=== PATIENT | female | born 1950 | race Caucasian/White ===

== ENCOUNTER 2018-09-22 07:15 | Inpatient (IN) | payer OTHER ==
--- NOTE | 2018-10-21 13:42 | GHP ---
[f rep st] PREOP HISTORY AND PHYSICAL DATE OF ADMISSION: 10/22/2018 ADMISSION DIAGNOSIS: Complication orthopedic implant, left knee. PLANNED PROCEDURE: Revision left total knee arthroplasty. HISTORY OF PRESENT ILLNESS: The patient is a 68-year-old female from [place], [place] who had a left total knee replacement done in 2009, which has chronically hurt as well as dislocated posteriorly. She was seen out in [place], [place] by myself. X-rays showed a malpositioned implant. Decision falguni bey made to proceed with a revision arthroplasty on the left. PRIOR MEDICAL HISTORY: Anxiety, hypertension, hyperlipidemia. MEDICATIONS: Atorvastatin 20 mg daily, furosemide 40 mg daily, losartan 100 mg tablet daily, levothy roxine 100 mcg, venlafaxine extended release 75 mg. SOCIAL HISTORY: and lives in [place], [place]. Has a daughter that assists in her care. Do es not drink alcohol. Never smoker. REVIEW OF SYSTEMS: No shortness of breath or chest pain. Otherwise, review of systems unremarkable. PHYSICAL EXAM: VITAL SIGNS: A 68-year-old female. She is 5 feet 2 inches tall, weighs 252 pounds, which puts her BMI of 45.9, blood pressure is 132/84, heart rate 94. GENERAL: Alert and oriented x3 . HEENT: Normocephalic, atraumatic. Extraocular muscles intact. NECK: Supple. There is no lymph adenopathy. No JVD. CHEST: Clear to auscultation. CARDIOVASCULAR: Regular rate and rhythm. ABDO MEN: Soft, nontender, nondistended. EXTREMITIES: Left knee shows well-healed midline incision. Sh e has full extension, flexes to 120 degrees. The knee tibial component does seem to come out posteri sam. Knee is stable to varus valgus stress testing. Calf is soft. 1+ dorsalis pedis, posterior ti bial pulses. IMAGING: Shows a malpositioned tibial component with excess tibial slope. PLAN: Long discussion with the patient and her daughter. We spent 15 minutes [id number] time revi esquivel clinical course, imaging findings and surgical options. At this point, I think we will need to revise both the tibial component, as well as the femoral component. There is possibility that anatoly jacobson need a hinge on that to give her stability. She will spend several days in the hospital here and t mikel I anticipate discharge to a assisted facility back in [place]. She understands that risks and benefits, including infection, need for additional surgery, blood clots were all discussed. She understands these risks, wished to proceed. Plan on surgery Saturday at [facility]. /[id number]/MODL
[2018-10-22] MEDS ORDERED: ceFAZolin 2 GM/DEXTROSE 100 ML IV ONE (08:00)
[2018-10-22] MEDS ORDERED: LR 1,000 ML IV ONE (08:04)
--- NOTE | 2018-10-22 08:24 | PDHPUP ---
History & Physical Update H&P update statement: This history and physical update is based on an assessment of the patient which was completed after admission or registration (within 24 hours), but prior to the surgery/procedure. H&P update: H&P reviewed & patient examined, no change in patient's condition since H&P completed
[2018-10-22] MEDS ORDERED: ceFAZolin 1 GM/5 ML SYR ONE (08:31)
[2018-10-22] MEDS ORDERED: BUPIVACAINE/EPI 0.25% 30 ML SDV ONE (08:42)
[2018-10-22] MEDS ORDERED: MIDAZOLAM 2 MG/2 ML VIAL ONE (08:46)
[2018-10-22] MEDS ORDERED: PROPOFOL/EMULSION 500 MG/50 ML BOTTLE IV ONE ×4 (08:48→12:03)
[2018-10-22] MEDS ORDERED: BUPIVACAINE/DEXTROSE 7.5MG/ML 2 ML SPINAL AMP SP ONE (08:51)
[2018-10-22] MEDS ORDERED: PHENYLEPHRINE HCL 100 MCG/ML SYR ONE (09:23)
[2018-10-22] MEDS ORDERED: ONDANSETRON 4 MG/2 ML VIAL ONE (09:24)
[2018-10-22] MEDS ORDERED: DEXAMETHASONE 4 MG/ML VIAL ONE (09:24)
[2018-10-22] MEDS ORDERED: RANITIDINE 50 MG/2 ML VIAL ONE (09:24)
[2018-10-22] MEDS: THROMBIN (BOVINE) 5,000 UNIT VIAL TP ONE ×2 (10:17→13:37)
[2018-10-22] MEDS: CALCIUM CHLORIDE 1 GM/10 ML INJ ONE ×2 (10:18→13:36)
[2018-10-22] MEDS ORDERED: fentaNYL 100 MCG/2 ML INJ ONE (10:59)
[2018-10-22] MEDS ORDERED: MIDAZOLAM 2 MG/2 ML VIAL IVP ONE (11:20)
[2018-10-22] MEDS ORDERED: ONDANSETRON 4 MG/2 ML VIAL IVP PRN ×2 (12:46→13:48)
[2018-10-22] MEDS ORDERED: ALBUTEROL 3 ML DEYVIAL IH PRN (12:46)
[2018-10-22] MEDS ORDERED: HYDROmorphONE/DILAUDID 1 MG/ML INJ IVP PRN (12:46)
[2018-10-22] MEDS ORDERED: fentaNYL 100 MCG/2 ML INJ IVP PRN (12:46)
[2018-10-22] MEDS ORDERED: NALOXONE HCL 0.4 MG/ML INJ IVP PRN (12:46)
[2018-10-22] MEDS ORDERED: oxyCODONE IR 5 MG TAB PO PRN (12:46)
--- NOTE | 2018-10-22 12:48 | PDANEPAE ---
ANE History of Present Illness Right Knee Revision TKA ANE Past Medical History - Cardiovascular History Hx Hypertension: Yes Hx Arrhythmias: No Hx Chest Pain: No Hx Coronary Artery / Peripheral Vascular Disease: No Hx CHF / Valvular Disease: No Hx Palpitations: No - Pulmonary History Hx COPD: No Hx Asthma/Reactive Airway Disease: No Hx Recent Upper Respiratory Infection: No Hx Oxygen in Use at Home: Yes O2 in Use at Home (L/minute): 2-3L Hx Sleep Apnea: Yes Sleep Apnea Screening Result - Last Documented: Positive Pulmonary History Comment: LESLIE uses CPAP - Neurologic History Hx Cerebrovascular Accident: No Hx Seizures: No Hx Dementia: No - Endocrine History Hx Diabetes: No - Renal History Hx Renal Disorders: No - Liver History Hx Hepatic Disorders: No - Neurological & Psychiatric Hx Hx Neurological and Psychiatric Disorders: Yes Neurological / Psychiatric History Comment: depression/anxiety - Cancer History Hx Cancer: No - Congenital Disorder History Hx Congenital Disorders: No - GI History Hx Gastrointestinal Disorders: Yes Gastrointestinal History Comment: acid reflux - Other Health History Other Health History: psorasis on feet and hand. cataract sx bilat 2018. allergies - Chronic Pain History Chronic Pain: Yes (bilat knees) - Surgical History Prior Surgeries: none in last 5 yrs. 2010 ltka ANE Review of Systems Review of Systems: - Exercise capacity METS (RN): 3 METS ANE Patient History - Allergies Allergies/Adverse Reactions: amlodipine Allergy (Verified 10/16/18 14:30) Other-Enter Comments - Home Medications Home Medications: Ascorbic Acid [Vitamin C 500 mg (*)] 500 mg PO DAILY 09/08/18 [Last Taken ] Atorvastatin Calcium [Lipitor 20 mg (*)] 20 mg PO DAILY18 09/08/18 [Last Taken 10/21/18 20:00] C/E/Zn/Cu/OM3/DHA/EPA/LUT/ZEAX [Preservision Areds 2 Softgel] 1 each PO BID 01/19 [Last Taken 10/16/18] Cholecalciferol Vit D3 [Vitamin D3 (*)] 1,000 units PO DAILY 09/08/18 [Last Taken 10/16/18] Folic Acid [Folic Acid 1 MG (*)] 1 mg PO DAILY 09/08/18 [Last Taken 10/16/18] Furosemide [Lasix 40 MG (*)] 40 mg PO DAILY 09/08/18 [Last Taken 10/21/18 08:30] Glucosamine/Chondroitin [Glucosamine/Chondroitin (*)] 1 each PO DAILY 09/08/18 [ Last Taken 10/16/18] Herbals/Supplements -Info Only 1 ea PO DAILY 09/08/18 [Last Taken 10/16/18] Levothyroxine [Synthroid 100 mcg (*)] 100 mcg PO DAILY06 09/08/18 [Last Taken 05:30] Losartan Potassium 100 mg PO DAILY 09/08/18 [Last Taken 10/22/18 05:30] Magnesium Oxide [Magnesium Oxide 400 mg (*)] 400 mg PO DAILY 09/08/18 [Last Taken 10/16/18] Methotrexate Sodium [Rheumatrex 2.5 mg (RX)] 12.5 mg PO WE 09/08/18 [Last Taken 10/15/18] Multivitamins [Multivitamin (*)] 1 each PO DAILY 09/08/18 [Last Taken 10/16/18] Pantoprazole Sodium [Protonix 40mg (*)] 40 mg PO BID 09/08/18 [Last Taken 05:30] Potassium Cl [Klor-Con 20 meq (*)] 20 meq PO BID 09/08/18 [Last Taken 10/21/18 08:30] Venlafaxine Xr [Effexor Xr 75MG (*)] 75 mg PO DAILY 09/08/18 [Last Taken 05:30] traMADol [Ultram 50 mg (*)] 50 mg PO Q4 PRN 09/08/18 [Last Taken 10/17/18] Triamterene/Hctz 37.5/25 [Dyazide 37.5/25 (*)] 1 each PO DAILY 10/08/18 [Last Taken 10/21/18 08:30] - NPO status NPO Since - Liquids (Date): 10/22/18 NPO Since - Liquids (Time): 05:30 NPO Since - Solids (Date): 10/21/18 NPO Since - Solids (Time): 19:00 - Smoking Hx Smoking Status: Never smoked - Family Anes Hx Family Hx Anesthesia Complications: none ANE Labs/Vital Signs - Vital Signs Blood Pressure: 151/102 Heart Rate: 86 Respiratory Rate: 28 O2 Sat (%): 94 Height: 160.02 cm Weight: 114.759 kg ANE Physical Exam - Airway Neck exam: FROM Mallampati Score: Class 2 Mouth exam: normal dental/mouth exam - Pulmonary Pulmonary: clear to auscultation - Cardiovascular Cardiovascular: regular rate and rhythym - ASA Status ASA Status: III ANE Anesthesia Plan Anesthesia Plan: spinal Regional Anesthesia: adductor canal FNB
[2018-10-22] MEDS ORDERED: PROPOFOL 200 MG/20 ML VIAL ONE (12:56)
[2018-10-22] MEDS ORDERED: ceFAZolin 1 GM VIAL ONE ×2 (12:58→12:59)
[2018-10-22] MEDS ORDERED: ROPIVACAINE HCL 150 MG/30 ML INJ ONE (13:15)
--- NOTE | 2018-10-22 13:38 | POSTANESTH ---
Post Anesthetic Evaluation Cardiovascular Status: Normal, Stable Respiratory Status: Normal, Stable Level of Consciousness/Mental Status: Can Participate in Eval, Alert and Oriented Pain Control: Adequate, Prn Tx Ordered Nausea/Vomiting Control: Adequate, Prn Tx Ordered Complications Possibly Related to Anesthesia: None Noted
[2018-10-22] MEDS ORDERED: MAGNESIUM HYDROXIDE 30 ML UDCUP PO PRN (13:48)
[2018-10-22] MEDS ORDERED: LACTULOSE 20 GM/30 ML UDCUP PO PRN (13:48)
[2018-10-22] MEDS ORDERED: PROMETHAZINE HCL 25 MG/ML INJ IVP PRN (13:48)
[2018-10-22] MEDS ORDERED: PROMETHAZINE HCL 25 MG SUPPR PR PRN (13:48)
[2018-10-22] MEDS ORDERED: POLYETHYLENE GLYCOL 3350 17 GM PKT PO PRN (13:48)
[2018-10-22] MEDS ORDERED: BISACODYL 10 MG SUPP PR PRN (13:48)
[2018-10-22] MEDS ORDERED: diphenhydrAMINE 25 MG CAP PO PRN (13:48)
[2018-10-22] MEDS ORDERED: ONDANSETRON DISINTEGRATING 4 MG TAB PO PRN (13:48)
[2018-10-22] MEDS ORDERED: traMADol 50 MG TAB PO PRN (13:48)
[2018-10-22] MEDS ORDERED: TEMAZEPAM 15 MG CAP PO PRN (13:48)
--- NOTE | 2018-10-22 13:50 | POSTOPPROG ---
Post Op Note Date of Operation: 10/22/18 Surgeon: Kalpesh Flowers Cement Breaker: Yumiko Barriga Anesthesiologist: Palomo Anesthesia: Spinal Pre-op Diagnosis: malposition TKA Post-op Diagnosis: same Indication: pain, dysfunction Findings: excessive Posterior slope tibia Inf/Abcess present in the surg proc area at time of surgery?: No EBL: 100-500 (300 ml) Complications: none Bowel Protocol: Yes Clean Closure Performed: Yes
[2018-10-22] MEDS ORDERED: LR 1,000 ML IV SCH (14:00)
[2018-10-22] MEDS ORDERED: METHOTREXATE 2.5 MG TAB PO SCH (14:00)
[2018-10-22] MEDS: LABETALOL HCL 5 MG/ML 20 ML MDV IVP PRN ×2 (14:45→15:19)
[2018-10-22] MEDS ORDERED: LABETALOL HCL 5 MG/ML 20 ML MDV ONE (14:55)
--- NOTE | 2018-10-22 16:01 | SOAPPROG ---
SOAP Progress Note Assessment/Plan: Assessment: s/p left TKA revision - procedure earlier today with Dr. Flowers Doing well History of left TKA in [place] (2009); has had chronic pain and posterior dislocations; x-rays revealed malpositioning of the implant Plan: Begin d/c planning - she will likely stay in hospital for a couple days and then transfer back to SNF in [place] Continue VTE ppx- aspirin 325 mg BID x 21 days, SCDs in hospital Continue oral pain medication oxycodone, Tylenol, celebrex, tramadol Continue PT efforts WBAT, ROM as tolerated Follow up with Dr. Flowers in 2 weeks Subjective: Patient states she is doing ok, left knee pain is mild at this time secondary to the spinal anesthesia and nerve block. She is planning on going back to a SNF in [place]. She denies SOB, CP, fever, chills. Objective: Vital Signs Temp Pulse Resp BP Pulse Ox 36.5 C 78 18 157/78 H 91 L 10/22/18 15:40 10/22/18 15:40 10/22/18 15:40 10/22/18 15:40 10/22/18 15:40 10/21/18 10/22/18 10/23/18 05:59 05:59 05:59 Intake Total 1430 Output Total 150 Balance 1280 Patient resting comfortably in bed, no acute distress. LLE: Knee wound dressing has some saturated blood, otherwise it is intact. SCDs are in place. Lower leg compartments are soft and nontender. Negative Homans sign bilaterally. Patient can actively DF and PF her left foot and great toe against resistance. Grossly NVI distally. ICD10 Worksheet Patient Problems: Problems Problem Status Onset Left knee pain Acute
[2018-10-22] MEDS: ATORVASTATIN CALCIUM 20 MG TAB PO SCH (17:19)
[2018-10-22] MEDS: ceFAZolin 2 GM/DEXTROSE 100 ML IV SCH (17:19)
[2018-10-22] MEDS: KETOROLAC 15 MG/1 ML SDV IVP SCH (17:19)
[2018-10-22] MEDS: oxyCODONE IR 5 MG TAB PO PRN (17:26)
[2018-10-22] MEDS: FAMOTIDINE 20 MG TAB PO SCH (20:01)
[2018-10-22] MEDS: ACETAMINOPHEN 325 MG TAB PO SCH (20:01)
[2018-10-22] MEDS: SENNOSIDES/DOCUSATE SODIUM TAB PO SCH (20:02)
[2018-10-22] MEDS: POTASSIUM CL 20 MEQ TAB PO SCH (20:02)
[2018-10-22] MEDS: PANTOPRAZOLE SODIUM 40 MG TAB PO SCH (20:02)
[2018-10-22] MEDS: ASPIRIN 325 MG TAB PO SCH (22:48)
[2018-10-23] MEDS: ACETAMINOPHEN 325 MG TAB PO SCH ×4 (01:41→20:02)
[2018-10-23] MEDS: KETOROLAC 15 MG/1 ML SDV IVP SCH ×3 (01:42→12:12)
[2018-10-23] MEDS: ceFAZolin 2 GM/DEXTROSE 100 ML IV SCH (01:42)
[2018-10-23] MEDS: LEVOTHYROXINE 100 MCG TAB PO SCH (05:12)
--- NOTE | 2018-10-23 05:48 | GOP ---
[f rep st] OPERATIVE REPORT DATE OF OPERATION: 10/22/2018 SURGEON: Kalpesh Flowers MD BOAT ENGINES INSTALLER: Yumiko Barriga PA-C ANESTHESIOLOGIST: Filiberto Culver DO PREOPERATIVE DIAGNOSIS: Malpositioning left total knee arthroplasty. POSTOPERATIVE DIAGNOSIS: Malpositioning left total knee arthroplasty. PROCEDURE PERFORMED: Revision left total knee arthroplasty. FINDINGS: INDICATIONS: The patient is a 68-year-old female from [place], [place], who underwent a total knee arthroplasty on the left in 2009. She has had pain and deformity with posterior dislocation of the knee with activity since then. Decision was made to proceed with a revision total knee arthroplasty. DESCRIPTION OF PROCEDURE: After appropriate informed consent was obtained, the patient was taken to the operating room, and placed supine on the operating table. A time-out was performed. The patient was identified, and correct site was identified. She received 2 g of Ancef preoperatively. Dr. Culver administered a spinal anesthetic. She was then positioned on the OR table with all bony prominences well padded. The left lower extremity was prepped and draped in the usual sterile fashion. I exsanguinated the limb, and inflated the tourniquet to 275 mmHg. Using the previous incision, soft tissues were carefully dissected. We made a medial parapatellar arthrotomy with careful releases, protecting the patellar tendon. I was able to diana the patella. The tibia was cemented with excessive posterior slope. Using an oscillating saw and flexible osteotomes, we carefully the tibial implant from the bone and we were able to back it out slowly. The tibia was actually in fairly good shape. Remaining cement fragments were removed. We then turned our attention to the femoral implant. This again was removed with the combination of oscillating saw and osteotomes, carefully removing the distal femoral implant, trying to preserve as much bone as possible. Remaining cement was excised. We then used our hand reamers and reamed up to a size 13 on the tibia, 14 on the femur to a depth of 175 mm. We then were able to use our tibial capture and we resected about 5 mm off the anterior aspect of the tibia, which flattened out our tibial cut. There was some defect in the central tibia, so I decided at that point to size a cone. B was a little too big. I was concerned about the anterior cortex. We went with a size A. We reamed that and then as we were using our distal reamer, we hit some cement and created a small crack in the tibia. I then placed 2 anterior to posterior 3.5 mm cortical screws after I held the tibia together with a clamp, with good bony purchase and reduction of the fracture. We then turned our attention to the femur. Working off the 14 reamer, we were able to put our distal cutting block in place. This sized to a size 2. We resected a little bit off the anterior femur, a little bit off the posterior condyles. There were some bony defects. We measured these and removed the cutting blocks. At this point, 120 minutes had , so we let the tourniquet down. We had made our box cut when the four-in-one cutting guide was in place. Then with a trial implant, we set it up with the augments, 5 mm on the posterior, 15 on the lateral side, 5 on the medial side, and trialed the femoral component as well as the tibial component. We trialed both a 19 and 22 mm poly. The 22 poly gave us a little better mediolateral stability, still with full extension. All trial implants were then removed. The wound was irrigated with pulsatile lavage. Bleeding was controlled with electrocautery. We then cemented the tibial component, followed by the femoral component, and snapped our [address]. Again, we put the knee through a range of motion with good extension, good medial and lateral stability. The wound was irrigated a final time. The extensor mechanism was closed with 0 Vicryl. I instilled 10 mL of 0.5% Marcaine with epinephrine into the knee joint. The superficial layers were closed with 0 Vicryl, 2-0 Vicryl, and skin randy. Sterile dressing was applied. The patient was awakened from anesthesia and taken to the recovery room in satisfactory condition. There were no immediate intraoperative complications. Yumiko Barriga's assistance was required throughout the entire case. TOURNIQUET TIME: Total 120 minutes at 275 mmHg. COMPLICATIONS: None. DRAINS: None. IMPLANTS USED: A Triathlon total stabilizer femoral component size 2 with 5 mm distal femoral augment, 15 mm lateral femoral augment, and 5 mm posterior augments bilaterally; a universal tibial baseplate size 3 with 100 mm stem cemented; a size A symmetric cone augment; 22 mm poly insert stabilized. /[id number]/MODL MTDD
--- NOTE | 2018-10-23 06:51 | SOAPPROG ---
SOAP Progress Note Assessment/Plan: Assessment: Plan: 10/23/18 06:50 POD#1 revision LT tKA PT/OT ASA for dvt proph plan on transfer to swing bed in Saturday Subjective: slept o/n pain controlled Objective: dressing c/d/i calf soft 5/ df/pf Vital Signs Temp Pulse Resp BP Pulse Ox 36.7 C 85 16 151/73 H 98 10/23/18 03:39 10/23/18 03:39 10/23/18 03:39 10/23/18 03:39 10/23/18 03:39 Laboratory Results 10/23/18 05:06 10/22/18 10/23/18 10/24/18 05:59 05:59 05:59 Intake Total 1994 Output Total 1050 Balance 945 ICD10 Worksheet Patient Problems: Problems Problem Status Onset Left knee pain Acute
[2018-10-23] MEDS: LOSARTAN POTASSIUM 50 MG TAB PO SCH (08:42)
[2018-10-23] MEDS: POTASSIUM CL 20 MEQ TAB PO SCH ×2 (08:42→20:01)
[2018-10-23] MEDS: VENLAFAXINE XR 75 MG CAP PO SCH (08:42)
[2018-10-23] MEDS: MULTIVITAMINS 1 EACH TAB PO SCH (08:42)
[2018-10-23] MEDS: FAMOTIDINE 20 MG TAB PO SCH ×2 (08:42→20:01)
[2018-10-23] MEDS: ASPIRIN 325 MG TAB PO SCH (08:42)
[2018-10-23] MEDS: SENNOSIDES/DOCUSATE SODIUM TAB PO SCH ×2 (08:42→20:01)
[2018-10-23] MEDS: CHOLECALCIFEROL VIT D3 1,000 UNITS TAB PO SCH (08:42)
[2018-10-23] MEDS: MAGNESIUM OXIDE 400 MG TAB PO SCH (08:42)
[2018-10-23] MEDS: FUROSEMIDE 40 MG TAB PO SCH (08:42)
[2018-10-23] MEDS: ASCORBIC ACID 500 MG TAB PO SCH (08:42)
[2018-10-23] MEDS: PANTOPRAZOLE SODIUM 40 MG TAB PO SCH ×2 (08:42→20:01)
[2018-10-23] MEDS: TRIAMTERENE/HCTZ 37.5/25 1 EACH CAP PO SCH (08:43)
[2018-10-23] MEDS: oxyCODONE IR 5 MG TAB PO PRN ×2 (09:21→17:52)
--- NOTE | 2018-10-23 13:56 | ASMTCMCOM ---
CM Note CM Note Notes: Pt had planned knee surgery. Pt resides in [place], lives alone and her supportive dghtr Giovanna lives two doors down. Pt plans to d/c to [facility] Swing bed. [facility] CM Roshni Huerta [phone] already knew about pt and they can accept Saturday by 1400. Clinicals were faxed to Roshni at [phone]. Roshni reports if for any reason pt is not ready on Saturday the next time they can accept is Saturday due to the holiday Saturday. Pt dghtr Giovanna will transport her to [facility] and is informed they need to leave by 11:00 Saturday, pt will tell Giovanna. D/c plan of care: [facility] Saturday Date Signed: 10/23/2018 01:55 PM Electronically Signed By:PAL Yusuf
[2018-10-23] MEDS: ATORVASTATIN CALCIUM 20 MG TAB PO SCH (17:53)
--- NOTE | 2018-10-23 23:14 | PDHOSCONS ---
History and Physical - Chief Complaint L TKA - History of Present Illness 68 yo F w/ hx of HTN, psoriasis, GERD, and hypothyroidism was admitted for planned L TKA revision. Hospital medicine was consulte for medical management. The patient underwent planned L TKA revision on 10/22 without complication. An echocardiogram and Lexiscan nuclear imaging study were performed prior to her procedure. I reviewed both of these tests and they were essentially normal. The procedure was uncomplicated. During my evaluation the patient is feeling well and denies pain or other complaints. She has her CPAP at bedside for hx of COPD. The only laboratory values available for review are post-op H/H of 9.4/ 28.6. Her blood pressure values have been within normal limits. History Information - Allergies/Home Medication List Allergies/Adverse Reactions: amlodipine Allergy (Verified 10/16/18 14:30) Other-Enter Comments Home Medications: Ascorbic Acid [Vitamin C 500 mg (*)] 500 mg PO DAILY 09/08/18 [Last Taken ] Atorvastatin Calcium [Lipitor 20 mg (*)] 20 mg PO DAILY18 09/08/18 [Last Taken 10/21/18 20:00] C/E/Zn/Cu/OM3/DHA/EPA/LUT/ZEAX [Preservision Areds 2 Softgel] 1 each PO BID 01/19 [Last Taken 10/16/18] Cholecalciferol Vit D3 [Vitamin D3 (*)] 1,000 units PO DAILY 09/08/18 [Last Taken 10/16/18] Folic Acid [Folic Acid 1 MG (*)] 1 mg PO DAILY 09/08/18 [Last Taken 10/16/18] Furosemide [Lasix 40 MG (*)] 40 mg PO DAILY 09/08/18 [Last Taken 10/21/18 08:30] Glucosamine/Chondroitin [Glucosamine/Chondroitin (*)] 1 each PO DAILY 09/08/18 [ Last Taken 10/16/18] Herbals/Supplements -Info Only 1 ea PO DAILY 09/08/18 [Last Taken 10/16/18] Levothyroxine [Synthroid 100 mcg (*)] 100 mcg PO DAILY06 09/08/18 [Last Taken 05:30] Losartan Potassium 100 mg PO DAILY 09/08/18 [Last Taken 10/22/18 05:30] Magnesium Oxide [Magnesium Oxide 400 mg (*)] 400 mg PO DAILY 09/08/18 [Last Taken 10/16/18] Methotrexate Sodium [Rheumatrex 2.5 mg (RX)] 12.5 mg PO WE 09/08/18 [Last Taken 10/15/18] Multivitamins [Multivitamin (*)] 1 each PO DAILY 09/08/18 [Last Taken 10/16/18] Pantoprazole Sodium [Protonix 40mg (*)] 40 mg PO BID 09/08/18 [Last Taken 05:30] Potassium Cl [Klor-Con 20 meq (*)] 20 meq PO BID 09/08/18 [Last Taken 10/21/18 08:30] Venlafaxine Xr [Effexor Xr 75MG (*)] 75 mg PO DAILY 09/08/18 [Last Taken 05:30] Triamterene/Hctz 37.5/25 [Dyazide 37.5/25 (*)] 1 each PO DAILY 10/08/18 [Last Taken 10/21/18 08:30] I have personally reviewed and updated: family history, medical history - Past Medical History GERD, hypertension Additional medical history: LESLIE. Hypothyroid. Psoriasis - Surgical History Additional surgical history: L TKA revision 10/22/18 - Family History Additional family history: Asked, denies - Social History Smoking Status: Never smoked Review of Systems Review of Systems: ROS: 10pt was reviewed & negative except for what was stated in HPI & below Physical Exam Physical Exam: Temp Pulse Resp BP Pulse Ox 36.8 C 90 16 130/55 H 95 10/23/18 19:12 10/23/18 22:56 10/23/18 22:56 10/23/18 19:12 10/23/18 22:56 O2 (L/minute) 3 Constitutional: no apparent distress, not in pain Eyes: PERRL, EOMI Ears, Nose, Mouth, Throat: moist mucous membranes, no oral mucosal ulcers Cardiovascular: regular rate and rhythym, systolic murmur Respiratory: no respiratory distress, clear to auscultation Gastrointestinal: normoactive bowel sounds, soft, non-tender abdomen Skin: warm, normal color Musculoskeletal: full muscle strength, other (L knee bandaged, c/d/i) Neurologic: AAOx3, CN II-XII Intact Psychiatric: interacting appropriately, not anxious Lab Data & Imaging Review 10/23/18 05:06 Hgb 9.4 g/dL (12.6-16.3) L 10/23/18 05:06 Hct 28.6 % (38.0-47.0) L 10/23/18 05:06 Assessment & Plan Assessment: 68 yo F w/ hx of HTN, psoriasis, GERD, and hypothyroidism was admitted for planned L TKA revision. Plan: 1. L TKA revision - S/p uncomplicated procedure on 10/22. Pain is controlled. - Management per surgical primary 2. HTN - On triamterene/HCTZ, and losartan as an outpatient. - Continue home medications - Will check BMP with morning labs 3. Hypothyroid - Continue LTX 4. GERD - Continue PPI 5. Psoriasis - MTX qWED; ok to continue. Diet - Regular Code - Full Ppx - ASA per surgery Thank you for this consult, the hospital medicine team will follow along with you.
[2018-10-24] MEDS: ACETAMINOPHEN 325 MG TAB PO SCH ×4 (02:15→20:13)
[2018-10-24] MEDS: LEVOTHYROXINE 100 MCG TAB PO SCH (06:06)
[2018-10-24] MEDS: ASPIRIN 325 MG TAB PO SCH (09:26)
[2018-10-24] MEDS: FAMOTIDINE 20 MG TAB PO SCH ×2 (09:26→20:13)
[2018-10-24] MEDS: SENNOSIDES/DOCUSATE SODIUM TAB PO SCH ×2 (09:27→20:12)
[2018-10-24] MEDS: MULTIVITAMINS 1 EACH TAB PO SCH (09:27)
[2018-10-24] MEDS: POTASSIUM CL 20 MEQ TAB PO SCH ×2 (09:27→20:16)
[2018-10-24] MEDS: TRIAMTERENE/HCTZ 37.5/25 1 EACH CAP PO SCH (09:28)
[2018-10-24] MEDS: PANTOPRAZOLE SODIUM 40 MG TAB PO SCH ×2 (09:28→20:13)
[2018-10-24] MEDS: FUROSEMIDE 40 MG TAB PO SCH (09:28)
[2018-10-24] MEDS: MAGNESIUM OXIDE 400 MG TAB PO SCH (09:28)
[2018-10-24] MEDS: ASCORBIC ACID 500 MG TAB PO SCH (09:28)
[2018-10-24] MEDS: CHOLECALCIFEROL VIT D3 1,000 UNITS TAB PO SCH (09:28)
[2018-10-24] MEDS: VENLAFAXINE XR 75 MG CAP PO SCH (09:38)
[2018-10-24] MEDS: LOSARTAN POTASSIUM 50 MG TAB PO SCH (09:39)
[2018-10-24] MEDS: oxyCODONE IR 5 MG TAB PO PRN ×2 (09:39→17:38)
--- NOTE | 2018-10-24 13:43 | HOSPPROG ---
Hospitalist Progress Note Assessment/Plan: DIAGNOSES: * Status post revision total knee arthroplasty * Elevated BUN, question if this represents some degree of hypovolemia or perhaps more likely renal perfusion issues related to COPD and sleep apnea possible pulmonary hypertension - asymptomatic related to this and is eating and drinking well, will observe for any progression * COPD, chronic currently stable * Obstructive sleep apnea on CPAP, chronic currently stable * Hypertension, chronic stable on medicines * Psoriasis, on methotrexate * Hypothyroidism * Depression, chronic stable on medication * Hyperlipidemia Overall doing quite well postoperatively. She does have some increased risk of respiratory complications between her COPD and sleep apnea. PLANS: * Continue CPAP during sleep * Continue usual medicines for COPD hypothyroidism hypertension and depression * Observe for any signs of complication or other problems SUBJECTIVE: Feels better after better pain control for her knee today with some analgesic No shortness of breath No nausea eating well No chest pain Was up with physical therapy OBJECTIVE Vitals reviewed: All stable without fever Exam: alert oriented skin warm dry color ok resps not labored lungs clear BSs heart regular abd soft nondistended nontender, bowel sounds present limbs warm, no edema iv site ok Lab data: Minimal decrease in hemoglobin since yesterday BUN elevated at 33 Glucose 141 Otherwise unremarkable metabolic panel Objective: Vital Signs Temp Pulse Resp BP Pulse Ox 36.8 C 97 16 141/89 H 96 10/24/18 12:13 10/24/18 12:13 10/24/18 12:13 10/24/18 12:13 10/24/18 12:13 Laboratory Results 10/24/18 05:01 10/24/18 05:01 10/23/18 10/24/18 10/25/18 06:59 06:59 06:59 Intake Total 1994 1850 300 Output Total 1050 1000 300 Balance 945 850 0 ICD10 Worksheet Patient Problems: Problems Problem Status Onset Left knee pain Acute
--- NOTE | 2018-10-24 15:47 | ASMTCMCOM ---
CM Note CM Note Notes: Pt d/c plan remains the [facility] bed tomorrow. Rosh[facility] Huerta in [place] confirms they can accept tomorrow by 1400. Pt family would like to leave about 09:00 since they anticipate needing to stop, traffic and it is over three hours away. . RN report is [phone] Doc to doc report is required at [phone] Fax orders to [phone] Date Signed: 10/24/2018 03:46 PM Electronically Signed By:PAL Yusuf
[2018-10-24] MEDS: ATORVASTATIN CALCIUM 20 MG TAB PO SCH (17:38)
[2018-10-25] MEDS: ACETAMINOPHEN 325 MG TAB PO SCH ×2 (01:59→08:36)
[2018-10-25] MEDS: LEVOTHYROXINE 100 MCG TAB PO SCH (05:28)
--- NOTE | 2018-10-25 06:36 | PDIAF ---
- Diagnosis Diagnosis: S/P revision TKA left Code Status: Full Code - Medication Management Usp Antibiotics: no Discharge Medications: electronically signed and located in the Home Medication List. PICC Care - Routine: N/A - Orders Services needed: Physical Therapy, Occupational Therapy Home Care Face to Face: 10/25/18 Diet Recommendation: no restrictions on diet Diet Texture: Regular Texture Diet Sutures/Benton Site: left knee remove in 3 weeks Date to Remove Sutures/Benton: 12/10/18 Activity/Weight Bearing Restrictions: wbat Additional Instructions: WBAT LLE. Keep dressing clean and dry. PT/OT for gait training, ROM, and strengthening. Aspirin 325mg po qd x 21 days. Follow up in office in 14 days for repeat evaluation and wound check. - Follow Up Care Current Providers and Referrals: Kalpesh Flowers MD [Medical Doctor] - follow up in 2 weeks NONE *PRIMARY CARE P,. [Primary Care Provider] -
--- NOTE | 2018-10-25 07:58 | SOAPPROG ---
SOAP Progress Note Assessment/Plan: Assessment: Plan: 10/23/18 06:50 POD#1 revision LT tKA PT/OT ASA for dvt proph plan on transfer to swing bed in [place] Saturday10/25/18 07:58 POD#3 revision LT tKA DC to swing bed [place] Today hold methotrexate until incision healed ASA x 14 days Subjective: feeling better walked with PT yesterday Objective: will change dressing today c/d/i calf soft5/5 df/pf 1+ dp/tp pulses Vital Signs Temp Pulse Resp BP Pulse Ox 36.9 C 85 18 123/67 H 93 10/25/18 04:00 10/25/18 04:00 10/25/18 04:00 10/25/18 04:00 10/25/18 04:00 Laboratory Results 10/24/18 05:01 10/24/18 05:01 10/24/18 10/25/18 10/26/18 05:59 05:59 05:59 Intake Total 1850 3200 Output Total 1000 1800 Balance 850 1400 ICD10 Worksheet Patient Problems: Problems Problem Status Onset Left knee pain Acute
[2018-10-25 08:07] VITALS: BP 153/56
[2018-10-25] MEDS: CHOLECALCIFEROL VIT D3 1,000 UNITS TAB PO SCH (08:37)
[2018-10-25] MEDS: FAMOTIDINE 20 MG TAB PO SCH (08:37)
[2018-10-25] MEDS: ASPIRIN 325 MG TAB PO SCH (08:37)
[2018-10-25] MEDS: ASCORBIC ACID 500 MG TAB PO SCH (08:37)
[2018-10-25] MEDS: FUROSEMIDE 40 MG TAB PO SCH (08:38)
[2018-10-25] MEDS: LOSARTAN POTASSIUM 50 MG TAB PO SCH (08:38)
[2018-10-25] MEDS: MULTIVITAMINS 1 EACH TAB PO SCH (08:39)
[2018-10-25] MEDS: POTASSIUM CL 20 MEQ TAB PO SCH (08:39)
[2018-10-25] MEDS: PANTOPRAZOLE SODIUM 40 MG TAB PO SCH (08:39)
[2018-10-25] MEDS: VENLAFAXINE XR 75 MG CAP PO SCH (08:40)
[2018-10-25] MEDS: TRIAMTERENE/HCTZ 37.5/25 1 EACH CAP PO SCH (08:40)
[2018-10-25] MEDS: SENNOSIDES/DOCUSATE SODIUM TAB PO SCH (08:41)
[2018-10-25] MEDS: MAGNESIUM OXIDE 400 MG TAB PO SCH (08:43)
--- NOTE | 2018-10-25 09:11 | ASMTDCNOTE ---
Case Management Discharge Discharge Order Complete? Answers: Yes Patient to Obtain Answers: Other Notes: [facility] Medications Transportation Arranged Answers: Family/Friends Discharge Comments Notes: CM met with pt and children. Pt is being transported by her children to [facility]. PEGGY text RN to leave report. CM text doc the number for doc to doc report. Date Signed: 10/25/2018 09:11 AM Electronically Signed By:Maame Hussein
--- NOTE | 2018-10-25 09:12 | ASMTLACE ---
YANG Length of stay for Answers: 3 days current admission Acuity / Level of Answers: Yes Care: Did the patient have an inpatient admission? Comorbidities - select Answers: Opioid dependence all that apply / Chronic pain Other Notes: HTN # of Emergency department Answers: 0 visits in the last 6 months Social determinants Answers: Mental health diagnosis (anxiety, depression, pers onality disorders, etc.) Score: 14 Date Signed: 10/25/2018 09:11 AM Electronically Signed By:Maame Hussein
[2018-10-25] MEDS: oxyCODONE IR 5 MG TAB PO PRN (09:50)
--- NOTE | 2018-10-25 09:59 | ASDISCHSUM ---
Discharge Information Plan Status:Inpatient Rehab Medically Cleared to Leave: Discharge Date: D/C Disposition:Other Rehab, Not [facility] D/C Disposition:Shelter Facility Projected Discharge Date: Transportation at D/C: Discharge Delay Reason: Follow-Up Date: Discharge Slot: Final Diagnosis: Placement Information Patient Contact Information Contact Name:MARIELLA Relationship:Daughter Address: Work Phone: City: Alternate Phone: State/Zip Code: Email: Financial Information Financial Class:Medicare Primary Plan Desc:MEDICARE INPATIENT Primary Plan Number:[id number] Secondary Plan Desc:[employer] Secondary Plan Number:[id number] Assessment Information LACE LACE Length of stay for Answers: 3 days current admission Acuity / Level of Answers: Yes Care: Did the patient have an inpatient admission? Comorbidities - select Answers: Opioid dependence all that apply / Chronic pain Other Notes: HTN # of Emergency department Answers: 0 visits in the last 6 months Social determinants Answers: Mental health diagnosis (anxiety, depression, pers onality disorders, etc.) Score: 14 Date Signed: 10/25/2018 09:11 AM Electronically Signed By:Maame Hussein [facility] Progress Note CM Note CM Note Notes: Pt had planned knee surgery. Pt resides in [place], lives alone and her supportive dghtr Giovanna lives two doors down. Pt plans to d/c to [facility] Swing bed. [facility] PEGGY Huerta [phone] already knew about pt and they can accept Saturday by 1400. Clinicals were faxed to Roshni at [phone]. Roshni reports if for any reason pt is not ready on Saturday the next time they can accept is Saturday due to the holiday Saturday. Pt chele Giovanna will transport her to [place] and is informed they need to leave by 11:00 Saturday, pt will tell Giovanna. D/c plan of care: [facility] Saturday Date Signed: 10/23/2018 01:55 PM Electronically Signed By:PAL Yusuf [facility] CM Progress Note CM Note CM Note Notes: Pt d/c plan remains the [facility]ing bed tomorrow. Roshni Bradley in [place] confirms they can accept tomorrow by 1400. Pt family would like to leave about 09:00 since they anticipate needing to stop, traffic and it is over three hours away. . RN report is [phone] Doc to doc report is required at [phone] Fax orders to [phone] Date Signed: 10/24/2018 03:46 PM Electronically Signed By:PAL Yusuf Case Management Discharge Plan Note Case Management Discharge Discharge Order Complete? Answers: Yes Patient to Obtain Answers: Other Notes: [facility] Medications Transportation Arranged Answers: Family/Friends Discharge Comments Notes: PEGGY met with pt and children. Pt is being transported by her children to [facility]. PEGGY text RN to leave report. PEGGY text doc the number for doc to doc report. Date Signed: 10/25/2018 09:11 AM Electronically Signed By:Maame Hussein [facility] CM Progress Note CM Note CM Note Notes: Signed copy of Emtala Form is filled out and photo copied and faxed to [facility]. Date Signed: 10/25/2018 09:58 AM Electronically Signed By:Maame Hussein Intervention Information Intervention Type:*IM-Signed Date of Service:10/24/2018 10:11 AM Patient Type:Inpatient Staff Member:Jamila Louis Hours: Discipline: Severity: Comment:
--- NOTE | 2018-10-25 12:35 | HOSPPROG ---
Hospitalist Progress Note Assessment/Plan: 68y female with TKA. First encounter, chart reviewed. D/W Dr Conn #Status post revision total knee arthroplasty -stable #Elevated BUN -stable #Anemia -stable -asymptomatic #COPD, -chronic currently stable #Obstructive sleep apnea -on CPAP, chronic currently stable #Hypertension, -chronic stable on medicines #Psoriasis, -on methotrexate -hold for 14 days #Hypothyroidism -meds #Depression, -chronic stable on medication #Hyperlipidemia -meds #Dispo -DC to facility in [place] Subjective: Up in chair. Tired from shower. Pain stable. Objective: Vital Signs Temp Pulse Resp BP Pulse Ox 37.1 C 97 14 153/56 H 95 10/25/18 08:00 10/25/18 08:00 10/25/18 08:00 10/25/18 08:00 10/25/18 08:00 Laboratory Results 10/24/18 05:01 10/24/18 05:01 10/24/18 10/25/18 10/26/18 05:59 05:59 05:59 Intake Total 1850 3200 Output Total 1000 1800 Balance 850 1400 - Physical Exam Constitutional: no apparent distress, appears nourished, obese Eyes: PERRL, anicteric sclera, EOMI Ears, Nose, Mouth, Throat: moist mucous membranes, hearing normal, ears appear normal Cardiovascular: regular rate and rhythym, No JVD, No edema Respiratory: no respiratory distress, no rales or rhonchi, reduced air movement Gastrointestinal: normoactive bowel sounds, No tenderness, No ascites Skin: warm, normal color, No mottled Musculoskeletal: joint tenderness, pain with ROM, generalized weakness Neurologic: AAOx3 Psychiatric: interacting appropriately, not anxious, not encephalopathic, thought process linear ICD10 Worksheet Patient Problems: Problems Problem Status Onset Left knee pain Acute
--- NOTE | 2018-10-25 12:39 | PDMN ---
Medical Necessity Medical necessity: Pt meets IP criteria per PA & MCG; est los >2 mn s/p L TKA revision; recommending IP due to advanced age, hx COPD, LESLIE, HTN & ASA III; per order & H&P 10/22/18
== END 2018-10-25 10:12 | DRG 468 ==
LOC: F3N 10-22 07:56
PROVIDERS: ADMIT Orthopaedic Surgery; ATTEND Orthopaedic Surgery
DX: T84.093A Other mechanical complication of internal left knee prosthesis, initial encounter (principal); M96.672 Fracture of tibia or fibula following insertion of orthopedic implant, joint prosthesis, or bone plate, left leg; J44.9 Chronic obstructive pulmonary disease, unspecified; G47.33 Obstructive sleep apnea (adult) (pediatric); I10 Essential (primary) hypertension; L40.9 Psoriasis, unspecified; E03.9 Hypothyroidism, unspecified; F32.9 Major depressive disorder, single episode, unspecified; E78.5 Hyperlipidemia, unspecified; K21.9 Gastro-esophageal reflux disease without esophagitis
CPT/HCPCS: 97110-GP; 97116-GP; 97161-GP; 97165-GO; 97530-GP; 97535-GO; C1713; J0690; J1100; J1885; J2250; J2370; J2405; J2704; J2780; J2795; J3010

== ENCOUNTER → 2018-09-24 | Outpatient (CLI) | payer OTHER ==
--- NOTE | 2018-09-24 15:10 | ECHO ---
[email or web address] [address] Main: [phone] Echocardiography Examination Transthoracic Name: MIGUEL ANGEL GRACE MR#: [id number] Study Date: 09/24/2018 Study Time: 02:03 PM Date of : 1950 Age: 67 year(s) Height: 160 cm (63 in.) Weight: 116.12 kg (256 lb.) BSA: 2.15 m2 Gender: Female Examination: Echo Contrast: Image Quality: Adequate Rhythm: Normal sinus rhythm Heart Rate: BP: / Indication: abnormal ecg; pre-op Procedure Staff Referring Physician: Rn Transport: Nemo Tavarez [facility] Reading Physician: Rosa Elena Osorio MD Requesting Provider: Ordering Physician: John Longoria Indication: abnormal ecg; pre-op Measurements Chambers AV/MV Label Value Normal Value Label Value Normal Value LVOT Vmax 1.23 m/s (0.7m/s - 1.1m/s) AV PGmax 15 mmHg LVOTd 2 cm (1.8cm - 2cm) AV Vmax 1.93 m/s LVDd, 2D 3.6 cm (3.9cm - 5.3cm) KENAN (Vmax) 2 cm2 LVDs, 2D 2.5 cm (2.1cm - 4cm) MV E Vmax 0.86 m/s IVSd, 2D 1.3 cm (0.6cm - 1.1cm) MV A Vmax 0.93 m/s LVPWd, 2D 1 cm MV E/A 0.92 LVEF, BP 70 % (55% - 70%) MV E/E' lateral 10.1 LVEF, 2D 57 % (54% - 74%) MV E/E' septal 11.9 (0.45 - 1.25) RVDd, 2D 3 cm (1.9cm - 3.8cm) MV DT 222 ms TAPSE 2.7 cm MV E' septal 0.07 m/s LA Volume, BP 67 ml (22ml - 52ml) MV E' lateral 0.08 m/s LADs, 2D 3.9 cm (2.7cm - 3.8cm) MV E/E' mean 11.47 LAESV index, BP 31.2 ml/m2 MV E' mean 0.08 m/s RA Area 13 cm2 TV/PV Additional Vessels Label Value Normal Value Label Value Normal Value PV PGmax 9 mmHg AoAsc 2.7 cm PV Vmax, Caliper 1.53 m/s (0.6m/s - 0.9m/s) AoRoot, 2D 2.8 cm (1.4cm - 2.6cm) Patient: MIGUEL ANGEL GRACE Study Date: 09/24/2018 Page 1 of 2 02:03 PM Conclusions 1. Normal LV size and systolic function,. LVEF is 70%. Normal wall motion 2. RV normal in size and systolic function 3. Normal biatrial size 4. Mild MR 5. Trace TR with estimated PASP 6. No prior Findings Left Ventricle: Left ventricle is normal in size. Normal global systolic left ventricular function. EF evaluated by EF (biplane Deleon's). The ejection fraction, measured by Simpsons method, is 70 %. EF range is estimated at 65 % - 70 %. The LV wall thickness is at the upper limits of normal. There are no regional wall motion abnormalities. Left ventricular diastolic function parameters are normal. Right Ventricle: Normal size right ventricle. Right ventricular systolic function is normal. Left Atrium: The left atrium is normal in size. Right Atrium: The right atrium is normal in size. Mitral Valve: Mitral valve appears structurally normal. Mild mitral regurgitation. No mitral valve stenosis. Aortic Valve: Aortic valve is poorly visualized. No aortic valve regurgitation. There is no aortic stenosis. The aortic valve is probably trileaflet. Tricuspid Valve: Tricuspid valve leaflets are structurally normal. Trivial tricuspid regurgitation. Pulmonary artery pressure cannot be assessed due to inadequate TR signal. Pulmonic Valve: Pulmonic leaflets are structurally normal. No pulmonic valve regurgitation is evident. Aorta: The aortic root size in 2D measures 2.8 cm. The aortic root exhibits normal size. The ascending aorta measures 2.7 cm. Ascending aorta is normal in size. Aorta Measurements AoRoot, 2D is 2.8 cm. IVC: The inferior vena cava is normal in size and course. Pericardium: A pericardial fat pad is present. No pericardial effusion. Exam Details Procedure Ordered: Echo Procedure Status: Routine study Image Quality: Adequate Facility Location: Cardiac Echo 1 (No Signature Object) Patient: MIGUEL ANGEL GRACE Study Date: 09/24/2018 Page 2 of 2 02:03 PM [id number]
== END ==
LOC: FCP 13:38
PROVIDERS: ATTEND Registered Nurse
DX: R94.31 Abnormal electrocardiogram [ECG] [EKG] (principal); R06.02 Shortness of breath

== ENCOUNTER → 2018-09-25 | Outpatient (CLI) | payer OTHER | LOC: BHFA 14:00 | PROVIDERS: ATTEND Internal Medicine Cardiovascular Disease | DX: R94.31 Abnormal electrocardiogram [ECG] [EKG] (principal); R06.02 Shortness of breath | CPT/HCPCS: 78452; 93017; A9500; J2785 ==